=== PATIENT | male | born 1995 | race African-American/Black ===

== ENCOUNTER 2016-10-05 07:36 | Emergency (ER) | payer MEDICAID ==
[~2016-10-05] VITALS: Ht 175.3 cm; Wt 65.3 kg
[~2016-10-05 07:36] MED LIST: ALB2T PO; CARI250T8 PO; LEVE500T22 PO; NOR10T PO; TOPOMAX
[2016-10-05 08:43] LABS: Basophils # (auto) 0 uL; Basophils % (auto) 0.4 % (0.0-2.0); Eosinophils # (auto) 0 uL; Eosinophils % (auto) 0.2 % (0.0-7.0); Hematocrit 50.5 % (41.0-53.0); Hemoglobin 16.5 g/dL (13.5-17.5); Lymphocytes # (auto) 2.2 uL; Lymphocytes % (auto) 41.2 % (10.0-50.0); Mean Corpuscular Hemoglobin 29.1 pg (28.0-32.0); Mean Corpuscular Hgb Conc. 32.7 g/dL (32.0-36.0); Mean Corpuscular Volume 88.9 fL (80.0-100.0); Mean Platelet Volume 8.3 fL (7.4-10.4); Monocytes # (auto) 0.4 uL; Monocytes % (auto) 6.9 % (0.0-12.0); Neutrophils # (auto) 2.8 uL; Neutrophils % (auto) 51.3 % (37.0-80.0); Platelet Count (auto) 238 10^3/uL (140-450); Red Cell Distribution Width 15.6 % (11.6-16.0); White Blood Cell 5.4 10^3/uL (4.4-10.8)
[2016-10-05] MEDS ORDERED: SODIUM CHLORIDE 0.9% 1,000 ML IV ONE (08:44)
[2016-10-05] MEDS ORDERED: LEVETIRACETAM 500 MG TAB PO ONE (08:45)
[2016-10-05 09:09] LABS: Albumin 4.4 g/dL (3.4-5.0); BUN/Creatinine Ratio 9.9; Bilirubin, Total 0.2 mg/dL (0.2-1.0); Calcium 8.5 mg/dL (8.5-10.1); Potassium 3.5 mmol/L (3.5-5.1); Total Protein 8.6 g/dL (6.4-8.2)
[2016-10-05] MEDS ORDERED: ACETAMINOPHEN 500 MG TAB PO ONE (09:22)
[2016-10-05 10:47] VITALS: BP 141/91
== END 2016-10-05 11:56 | disposition home or self-care (01) ==
LOC: ER 07:38
DX: G40.909 Epilepsy, unspecified, not intractable, without status epilepticus (principal); J45.909 Unspecified asthma, uncomplicated; Z90.49 Acquired absence of other specified parts of digestive tract
CPT/HCPCS: 36415; 70450; 80053; 80185; 82542; 82962; 85025; 93005; 96360; 99285; J7030

== ENCOUNTER 2017-12-31 18:29 | Emergency (ER) | payer MEDICAID ==
[~2017-12-31] VITALS: Ht 180.3 cm; Wt 65.8 kg
[~2017-12-31 18:29] MED LIST changes: +CARI250T PO; -CARI250T8 PO
[2017-12-31 19:20] LABS: Basophils # (auto) 0 uL; Basophils % (auto) 0.3 % (0.0-2.0); Eosinophils # (auto) 0 uL; Hematocrit 44.3 % (41.0-53.0); Hemoglobin 14.7 g/dL (13.5-17.5); Lymphocytes # (auto) 1.1 uL; Lymphocytes % (auto) 15.5 % (10.0-50.0); Mean Corpuscular Hemoglobin 31.3 pg (28.0-32.0); Mean Corpuscular Hgb Conc. 33.2 g/dL (32.0-36.0); Mean Corpuscular Volume 94.4 fL (80.0-100.0); Monocytes # (auto) 0.5 uL; Monocytes % (auto) 7.5 % (0.0-12.0); Neutrophils # (auto) 5.4 uL; Neutrophils % (auto) 76.7 % (37.0-80.0); Platelet Count (auto) 192 10^3/uL (140-450); Red Cell Distribution Width 14.3 % (11.8-14.3)
[2017-12-31] MEDS ORDERED: SODIUM CHLORIDE 0.9% 1,000 ML IVB ONE (19:35)
[2017-12-31] MEDS ORDERED: PANTOPRAZOLE 40 MG/10 ML VIAL IV STA (19:35)
[2017-12-31 19:36] LABS: Albumin 4.2 g/dL (3.4-5.0); BUN/Creatinine Ratio 9.8; Calcium 8.9 mg/dL (8.5-10.1); Potassium 4.6 mmol/L (3.5-5.1)
[2017-12-31 19:39] LABS: Bilirubin, Total 0.8 mg/dL (0.2-1.0); Total Protein 7.9 g/dL (6.4-8.2)
[2017-12-31] MEDS ORDERED: PROCHLORPERAZINE EDISYLATE 5 MG/ML 2ML VIAL IV ONE (19:45)
[2017-12-31 21:41] VITALS: BP 120/81
== END 2017-12-31 21:42 | disposition home or self-care (01) ==
LOC: EDBD 18:29 → ER 18:29
DX: K29.70 Gastritis, unspecified, without bleeding (principal); J45.909 Unspecified asthma, uncomplicated
CPT/HCPCS: 36415; 80053; 85025; 96361; 96374; 96375; 99285; C9113; J0780

== ENCOUNTER 2020-09-13 17:40 | Emergency (ER) | payer MEDICAID ==
[~2020-09-13] VITALS: Ht 180.3 cm; Wt 72.6 kg
[~2020-09-13 17:40] MED LIST changes: -LEVE500T22 PO; +LEVE500T32 PO
[2020-09-13 17:44] VITALS: BP 145/117
== END 2020-09-13 20:35 | disposition left against medical advice (07) ==
LOC: ER 17:40
DX: M25.561 Pain in right knee (principal); Z53.21 Procedure and treatment not carried out due to patient leaving prior to being seen by health care provider
CPT/HCPCS: 73562